=== PATIENT | male | born 1995 | race Caucasian/White ===

== ENCOUNTER 2017-09-10 02:40 | Outpatient (CLI) | payer MEDICAID | END 2017-09-10 23:59 | disposition home or self-care (01) | LOC: DIABETIC 02:40 | PROVIDERS: ATTEND Family Medicine | DX: E66.9 Obesity, unspecified (principal) | CPT/HCPCS: 97802 ==

== ENCOUNTER 2017-12-28 05:09 | Outpatient (CLI) | payer MEDICARE, MEDICAID | END 2017-12-28 23:59 | disposition home or self-care (01) | LOC: DIABETIC 05:09 | PROVIDERS: ATTEND Family Medicine | DX: Z00.00 Encounter for general adult medical examination without abnormal findings (principal); E66.09 Other obesity due to excess calories | CPT/HCPCS: 97802 ==

== ENCOUNTER 2018-03-31 01:49 | Outpatient (CLI) | payer MEDICARE, MEDICAID | END 2018-03-31 23:59 | disposition home or self-care (01) | LOC: DIABETIC 01:49 | PROVIDERS: ATTEND Family Medicine | DX: Z71.3 Dietary counseling and surveillance (principal); E66.9 Obesity, unspecified | CPT/HCPCS: 97802 ==

== ENCOUNTER 2021-09-28 11:57 | Emergency (ER) | payer MEDICARE, MEDICAID ==
[~2021-09-28] VITALS: Ht 195.6 cm; Wt 204.6 kg
--- NOTE | 2021-09-28 12:32 | NUR ---
1225 Call to poison control at this time with recommendation to monitor for 4-6 hours until pat returns to baseline, MARIBELL Kearns made aware.
[2021-09-28 13:27] LABS: BASOPHILS # (AUTO) 0.1 X10'3 (0-0.2); BASOPHILS % (AUTO) 0.7 % (0-1); EOSINOPHILS # (AUTO) 0.1 X10'3 (0-0.9); EOSINOPHILS % (AUTO) 1.4 % (0-6); HEMATOCRIT 43.5 % (42.0-52.0); HEMOGLOBIN 14.8 g/dl (14.0-17.9); LYMPHOCYTES # (AUTO) 2.2 X10'3 (1.1-4.8); LYMPHOCYTES % (AUTO) 23.8 % (21-51); MEAN CORPUSCULAR HEMOGLOBIN 32.6 PG (27.0-31.0); MEAN CORPUSCULAR HGB CONC 34.1 g/dL (33.0-36.5); MEAN CORPUSCULAR VOLUME 95.7 FL (78-98); MEAN PLATELET VOLUME 8.4 FL (7.4-10.4); MONOCYTES # (AUTO) 0.8 X10'3 (0-0.9); MONOCYTES % (AUTO) 8.2 % (2-12); NEUTROPHILS # (AUTO) 6.1 X10'3 (1.8-7.7); NEUTROPHILS % (AUTO) 65.9 % (42-75); PLATELET COUNT 219 X10'3 (140-440); RED BLOOD COUNT 4.54 X10'6 (4.70-6.10); RED CELL DISTRIBUTION WIDTH 12.9 % (11.5-14.5); WHITE BLOOD COUNT 9.2 X10'3 (4.5-11.0)
[2021-09-28 13:44] LABS: ALANINE AMINOTRANSFERASE 100 U/L (12-78); ALBUMIN 3.7 G/DL (3.4-5.0); ALBUMIN/GLOBULIN RATIO 0.9 (1.1-1.5); ALKALINE PHOSPHATASE 49 IU/L (46-116); ASPARTATE AMINO TRANSFERASE 36 U/L (10-37); BILIRUBIN,TOTAL 0.5 MG/DL (0.1-1.0); BLOOD UREA NITROGEN 18 MG/DL (7-18); BUN/CREATININE RATIO 20.2 (5.4-32.0); CALCIUM 9.1 MG/DL (8.5-10.1); CREATININE 0.89 MG/DL (0.60-1.10); ETHANOL < 0.010 GM/DL (0.0-0.010); GLUCOSE 96 MG/DL (70-104); TOTAL CARBON DIOXIDE 26.2 MMOL/L (24-32); TOTAL PROTEIN 7.9 G/DL (6.4-8.2); eGFR > 90 ML/MIN
[2021-09-28] MEDS ORDERED: ondansetron/PF 4mg/2ml inj IM ONE (15:05)
[2021-09-28] MEDS ORDERED: normal saline 1000ML IV soln IVB ONE (15:30)
[2021-09-28 15:54] VITALS: BP 146/78
[2021-09-28] MEDS ORDERED: ondansetron/PF 4mg/2ml inj IV ONE (17:15)
[2021-09-29 09:09] LABS: POTASSIUM 4.3 MMOL/L (3.3-5.1)
[2021-09-29 15:32] LABS: ANION GAP 9 (8-16); CHLORIDE 103 MMOL/L (99-107); POTASSIUM 4.3 MMOL/L (3.5-5.1); SODIUM 138 MMOL/L (135-145)
== END 2021-09-28 17:28 | disposition home or self-care (01) ==
LOC: ER 11:58
DX: T42.6X1A Poisoning by other antiepileptic and sedative-hypnotic drugs, accidental (unintentional), initial encounter (principal); T42.4X1A Poisoning by benzodiazepines, accidental (unintentional), initial encounter; T39.8X1A Poisoning by other nonopioid analgesics and antipyretics, not elsewhere classified, accidental (unintentional), initial encounter; T46.4X1A Poisoning by angiotensin-converting-enzyme inhibitors, accidental (unintentional), initial encounter; R42 Dizziness and giddiness; R41.0 Disorientation, unspecified; G47.30 Sleep apnea, unspecified; I10 Essential (primary) hypertension; Y92.89 Other specified places as the place of occurrence of the external cause
CPT/HCPCS: 36415; 80051; 80053; 80320; 85025; 96361; 96372; 96374; 99284; J2405; J7030

== ENCOUNTER 2022-11-30 20:55 | Inpatient (IN) | payer MEDICARE, MEDICAID ==
[~2022-11-30] VITALS: Ht 200.7 cm; Wt 204.6 kg
[2022-11-30] MEDS ORDERED: normal saline 1000ml 1,000 ML IV ONE (22:10)
[2022-11-30 22:28] LABS: BASOPHILS % (AUTO) 0.3 % (0-1); EOSINOPHILS # (AUTO) 0.1 X10'3 (0-0.9); EOSINOPHILS % (AUTO) 0.7 % (0-6); HEMATOCRIT 44.5 % (42.0-52.0); HEMOGLOBIN 15.6 g/dl (14.0-17.9); LYMPHOCYTES # (AUTO) 1.8 X10'3 (1.1-4.8); LYMPHOCYTES % (AUTO) 15.3 % (21-51); MEAN CORPUSCULAR HEMOGLOBIN 32.9 PG (27.0-31.0); MEAN CORPUSCULAR VOLUME 94.1 FL (78-98); MEAN PLATELET VOLUME 7.8 FL (7.4-10.4); MONOCYTES % (AUTO) 8.5 % (2-12); NEUTROPHILS % (AUTO) 75.2 % (42-75); PLATELET COUNT 233 X10'3 (140-440); RED BLOOD COUNT 4.73 X10'6 (4.70-6.10); RED CELL DISTRIBUTION WIDTH 12.9 % (11.5-14.5)
[2022-11-30 22:43] LABS: ALANINE AMINOTRANSFERASE 155 U/L (12-78); ALBUMIN 3.7 G/DL (3.4-5.0); ALBUMIN/GLOBULIN RATIO 0.9 (1.1-1.5); ALKALINE PHOSPHATASE 77 IU/L (46-116); ANION GAP 5 (8-16); ASPARTATE AMINO TRANSFERASE 54 U/L (10-37); BILIRUBIN,TOTAL 0.4 MG/DL (0.1-1.0); BLOOD UREA NITROGEN 18 MG/DL (7-18); BUN/CREATININE RATIO 17.6 (10.0-20.0); CALCIUM 9.1 MG/DL (8.5-10.1); CHLORIDE 104 MMOL/L (99-107); CREATINE KINASE 197 U/L (39-308); CREATININE 1.02 MG/DL (0.60-1.10); GLUCOSE 101 MG/DL (70-104); SODIUM 138 MMOL/L (135-145); TOTAL CARBON DIOXIDE 29.2 MMOL/L (24-32); eGFR 88 ML/MIN
[2022-11-30 22:48] LABS: POTASSIUM 4.8 MMOL/L (3.5-5.1)
[2022-12-01] MEDS ORDERED: magnesium 2GM in 50ml NS 50 ML IV PRN (01:05)
[2022-12-01] MEDS ORDERED: acetaminophen 325mg tablet PO PRN (01:05)
[2022-12-01] MEDS ORDERED: ondansetron/PF 4mg/2ml inj IV PRN (01:05)
[2022-12-01] MEDS ORDERED: magnesium Cl slow-release 64mg tablet PO PRN (01:05)
[2022-12-01] MEDS ORDERED: potassium Cl 20 mEq SR tablet PO PRN ×2 (01:05)
[2022-12-01] MEDS ORDERED: magnesium 4gm in 100ml NS 100 ML IV PRN (01:05)
[2022-12-01] MEDS ORDERED: potassium Cl 40MEQ/1/2NS 520ml 520 ML IV PRN (01:05)
[2022-12-01] MEDS ORDERED: LORazepam 2 mg/ml vial IV PRN (01:10)
[2022-12-01] MEDS: normal saline 1000ml 1,000 ML IV SCH ×2 (01:42→10:08)
[2022-12-01] MEDS: clindamycin 300mg/D5W 50mL 50 ML IV SCH ×4 (01:42→20:14)
[2022-12-01] MEDS ORDERED: LEVE10006 PO ×2 (01:45→02:39)
[2022-12-01] MEDS ORDERED: CLOB10TA17 PO ×2 (01:45→02:37)
[2022-12-01] MEDS ORDERED: LISI20TA28 PO (01:45)
[2022-12-01] MEDS ORDERED: LORA10TA7 PO (01:45)
[2022-12-01] MEDS ORDERED: LAMO100T PO (01:45)
--- NOTE | 2022-12-01 06:35 | NUR ---
Received report from ER, patient did not receive any anticonvulsants to prevent another seizure. Med reconciliation not done, paged doctor for orders. See below. promotional table spacer PAGER ID: [phone] MESSAGE: [id number] Terrance Kwok Can you do patients Med Rec? And did you not give him any anticonvulsants in the ER to prevent another seizure? Rehana [id number]
[2022-12-01] MEDS ORDERED: TYPE IN GENERIC & BRAND NAME OF PATIENT MED STRENGTH & FORM PO SCH (08:00)
[2022-12-01] MEDS: K and/or MAG REPLACEMENT MC SCH ×2 (08:00→20:00)
[2022-12-01 09:46] LABS: POTASSIUM 3.8 MMOL/L (3.5-5.1)
[2022-12-01 10:00] VITALS: BP 127/73
[2022-12-01] MEDS: lisinopril 20mg tablet PO SCH (10:10)
[2022-12-01] MEDS: loratadine 10mg tablet PO SCH (10:11)
[2022-12-01] MEDS: lamoTRIgine 100mg tablet PO SCH ×2 (10:11→20:14)
[2022-12-01 10:38] LABS: CLARITY,URINE CLEAR (Clear); COLOR,URINE YELLOW (Yellow); GLUCOSE, URINE NEGATIVE (Neg); KETONES,URINE NEGATIVE (Neg); LEUKOCYTE ESTERASE ,URINE NEGATIVE (Neg); NITRITES, URINE NEGATIVE (Neg); OCCULT BLOOD,URINE NEGATIVE (Neg); PROTEIN,URINE TRACE mg/dl (Neg); UROBILINOGEN,URINE 0.2 E.U/dL (0.2-1.0)
[2022-12-01 10:45] LABS: UA COLLECTION TYPE CLN CATCH MIDSTREAM
[2022-12-01 10:47] LABS: SPERM FEW /HPF (NEGATIVE); SQUAMOUS EPITHELIAL CELL,UR FEW /LPF (FEW)
[2022-12-01 10:48] LABS: BACTERIA,URINE FEW /HPF (Neg); RBC,URINE 0-2 /HPF (0-2); WBC,URINE 0-4 /HPF (0-4)
[2022-12-01 10:51] LABS: URINE AMPHETAMINE SCREEN NEGATIVE (Neg); URINE BARBITUATE SCREEN NEGATIVE (Neg); URINE BENZODIAZEPINES SCREEN POSITIVE (Neg); URINE CANNABINOID SCREEN NEGATIVE (Neg); URINE COCAINE SCREEN NEGATIVE (Neg); URINE METHADONE SCREEN NEGATIVE (Neg); URINE OPIATE SCREEN NEGATIVE (Neg); URINE PHENCYCLIDINE SCREEN NEGATIVE (Neg)
[2022-12-01] MEDS ORDERED: levetiracetam 250mg tablet PO SCH ×2 (11:28→21:00)
[2022-12-01] MEDS ORDERED: CLOBAZAM 10 MG PO ONE (11:55)
[2022-12-01] MEDS ORDERED: levetiracetam 250mg tablet PO ONE (11:55)
--- NOTE | 2022-12-01 13:07 | NUR ---
PAGER ID: [phone] MESSAGE: [id number] Terrance Kwok Patient mother is here if you want to talk with her. Rehana [phone]
--- NOTE | 2022-12-01 17:55 | NUR ---
paged twice for mother, she is still in the room waiting.
[2022-12-01 18:00] VITALS: BP 114/101
--- NOTE | 2022-12-01 18:14 | NUR ---
Problems reprioritized. Patient report given, questions answered & plan of care reviewed with Pat GARCÍA.
--- NOTE | 2022-12-01 18:15 | NUR ---
Patient in room ORTH[facility] 4020. I have received report from RICKY Kimball and had the opportunity to ask questions and assume patient care.
[2022-12-01] MEDS ORDERED: CLOBAZAM 10 MG PO SCH (21:00)
[2022-12-01 22:00] VITALS: BP 133/59
[2022-12-02] MEDS: clindamycin 300mg/D5W 50mL 50 ML IV SCH ×2 (00:58→07:59)
[2022-12-02 06:20] LABS: ALBUMIN 3.5 G/DL (3.4-5.0); ANION GAP 8 (8-16); BLOOD UREA NITROGEN 17 MG/DL (7-18); BUN/CREATININE RATIO 19.5 (10.0-20.0); CALCIUM 8.9 MG/DL (8.5-10.1); CHLORIDE 103 MMOL/L (99-107); CREATININE 0.87 MG/DL (0.60-1.10); GLUCOSE 93 MG/DL (70-104); MAGNESIUM 1.9 MG/DL (1.5-2.4); SODIUM 138 MMOL/L (135-145); eGFR > 90 ML/MIN
[2022-12-02 06:21] LABS: BASOPHILS # (AUTO) 0.1 X10'3 (0-0.2); BASOPHILS % (AUTO) 0.7 % (0-1); EOSINOPHILS # (AUTO) 0.2 X10'3 (0-0.9); HEMATOCRIT 42.8 % (42.0-52.0); HEMOGLOBIN 14.8 g/dl (14.0-17.9); LYMPHOCYTES # (AUTO) 2.8 X10'3 (1.1-4.8); LYMPHOCYTES % (AUTO) 33.5 % (21-51); MEAN CORPUSCULAR HEMOGLOBIN 32.8 PG (27.0-31.0); MEAN CORPUSCULAR HGB CONC 34.6 g/dL (33.0-36.5); MEAN CORPUSCULAR VOLUME 94.7 FL (78-98); MEAN PLATELET VOLUME 8.4 FL (7.4-10.4); MONOCYTES # (AUTO) 0.9 X10'3 (0-0.9); MONOCYTES % (AUTO) 10.3 % (2-12); NEUTROPHILS # (AUTO) 4.6 X10'3 (1.8-7.7); NEUTROPHILS % (AUTO) 53.5 % (42-75); PLATELET COUNT 196 X10'3 (140-440); RED BLOOD COUNT 4.52 X10'6 (4.70-6.10); RED CELL DISTRIBUTION WIDTH 13.2 % (11.5-14.5); WHITE BLOOD COUNT 8.5 X10'3 (4.5-11.0)
--- NOTE | 2022-12-02 06:37 | NUR ---
Patient in room ORTHO 4020. I have received report from RICKY Stewart and had the opportunity to ask questions and assume patient care.
--- NOTE | 2022-12-02 06:52 | NUR ---
Problems reprioritized. Patient report given, questions answered & plan of care reviewed with RICKY Hanna.
[2022-12-02 06:57] VITALS: BP 134/89
[2022-12-02] MEDS: lamoTRIgine 100mg tablet PO SCH (07:56)
[2022-12-02] MEDS: lisinopril 20mg tablet PO SCH (07:56)
[2022-12-02] MEDS: loratadine 10mg tablet PO SCH (07:57)
[2022-12-02] MEDS: K and/or MAG REPLACEMENT MC SCH (08:00)
[2022-12-02] MEDS: CLOBAZAM 10 MG PO SCH ×2 (08:00→11:43)
--- NOTE | 2022-12-02 11:29 | NUR ---
PAGER ID: [phone] MESSAGE: [id number]- Terrance Kwok- pt mother Shantel will be here to pick patient up at approx 1230 and was hoping to speak to you about imaging results as she was unable to yesterday. Thank you- Cyndi [phone]
[2022-12-02 11:44] VITALS: BP 148/91
--- NOTE | 2022-12-02 12:40 | NUR ---
Patient alert and oriented with mother at bedside. Discussed with patient discharge instructions. Patient mother (conservator) and patient verbalizes understanding of teaching. Patient has all belongings including home med stored in pharmacy. Patient ready for dc after eating lunch.
--- NOTE | 2022-12-02 13:03 | NUR ---
Dr. Pemberton called and spoke to patient's mother. Patient alert and oriented in no apparent acute distress. Patient escorted out in wheelchair accompanied by x1 staff in wheelchair and mother.
== END 2022-12-02 13:07 | disposition home or self-care (01) | DRG 100 ==
LOC: ER 20:55 → ED HOLD 12-01 01:08 → ORTHO 4S 12-01 07:45
PROVIDERS: ADMIT Internal Medicine; ATTEND Internal Medicine
PROC: 5A09357 Assistance with Respiratory Ventilation, Less than 24 Consecutive Hours, Continuous Positive Airway Pressure (ICD-10-PCS; principal; 2022-12-02)
DX: G40.119 Localization-related (focal) (partial) symptomatic epilepsy and epileptic syndromes with simple partial seizures, intractable, without status epilepticus (principal); J69.0 Pneumonitis due to inhalation of food and vomit; F84.0 Autistic disorder; Z68.43 Body mass index [BMI] 50.0-59.9, adult; T17.928A Food in respiratory tract, part unspecified causing other injury, initial encounter; E66.01 Morbid (severe) obesity due to excess calories; X58.XXXA Exposure to other specified factors, initial encounter; G47.30 Sleep apnea, unspecified; I10 Essential (primary) hypertension; Z79.899 Other long term (current) drug therapy; Y93.89 Activity, other specified; Y92.89 Other specified places as the place of occurrence of the external cause; Y99.8 Other external cause status
CPT/HCPCS: 36415; 70450; 71045; 80048; 80053; 80177; 80305; 81001; 82542; 82550; 83735; 84132; 85025; 94760; 99285; G0378; J3490; J7030